=== PATIENT | male | born 1960 | race Caucasian/White ===

== ENCOUNTER → 2016-07-21 | Outpatient (CLI) | payer OTHER ==
[~2016-07-21] MED LIST: AFRIN NASAL SPR30 ML; APIDRA100 UNIT/1 SC; BASAGLAR SQ; BUSPAR 10MG10 MG PO; CARAFATE 1 GM TA1 GM PO; CARAFATE1 GM PO; COLACE 100MG C100 MG PO; CREON DR 36,001 EACH PO; CREON DR 6,0001 EACH PO; ELAVIL 25 MG TA25 MG PO; FLOMAX 0.4 MG0.4 MG PO; GLUCERNA237 ML PO; LEVAQUIN I750 MG/150 IV; LEVAQUIN750 MG IV; LIDODERM PATCH 51 EA TOP; METFORMIN HCL500 MG PO; METOPROLOL TART25 MG PO; NEURONTIN 300300 MG PO; NEURONTIN300 MG PO; OMEPRAZOLE20 M1 PO; OXYCODONE HCL10 MG PO; PROTONIX40 MG PO; REQUIP2 MG PO; THERAGRAN TAB1 EA PO; VITAMIN A10000 UNI1 PO; VITAMIN B-1100 MG PO; VITAMIN D50000 UNIT PO; ZENPEP DR 5,001 EACH PO
== END ==
LOC: KOH-I 10:08
DX: M25.532 Pain in left wrist (principal); M79.642 Pain in left hand; S52.92XA Unspecified fracture of left forearm, initial encounter for closed fracture
CPT/HCPCS: 73110; 73130

== ENCOUNTER 2017-01-18 21:17 | Inpatient (IN) | payer OTHER ==
[~2017-01-18] VITALS: Ht 180.3 cm; Wt 79.4 kg
[2017-01-18 22:50] LABS: HEMOGLOBIN 13.1 gm/dl (14.0-17.5); RED BLOOD COUNT 4.36 M/UL (4.20-5.50); WHITE BLOOD COUNT 12.7 K/UL (4.5-11.0)
[2017-01-20 06:10] LABS: RED BLOOD COUNT 3.77 M/UL (4.20-5.50); WHITE BLOOD COUNT 6.5 K/UL (4.5-11.0)
[2017-01-20 06:18] LABS: BUN/CREATININE RATIO 13 (0-10)
[2017-01-22 06:01] LABS: BUN/CREATININE RATIO 7 (0-10)
== END 2017-01-22 16:45 | disposition home or self-care (01) | DRG 439 ==
LOC: ER1 21:17 → ZEROF 01-19 01:09 → MED SURG 4 01-19 01:09
PROVIDERS: Internal Medicine Infectious Disease; Physician Assistant; ADMIT Internal Medicine
DX: K85.80 Other acute pancreatitis without necrosis or infection (principal); N17.9 Acute kidney failure, unspecified; E87.1 Hypo-osmolality and hyponatremia; K52.1 Toxic gastroenteritis and colitis; F10.10 Alcohol abuse, uncomplicated; E86.0 Dehydration; E87.6 Hypokalemia; E08.9 Diabetes mellitus due to underlying condition without complications; D69.59 Other secondary thrombocytopenia; T39.015A Adverse effect of aspirin, initial encounter; I95.89 Other hypotension; K86.81 Exocrine pancreatic insufficiency; K86.1 Other chronic pancreatitis; I10 Essential (primary) hypertension; F17.210 Nicotine dependence, cigarettes, uncomplicated; Z72.89 Other problems related to lifestyle; N40.0 Benign prostatic hyperplasia without lower urinary tract symptoms; K21.9 Gastro-esophageal reflux disease without esophagitis; Z90.49 Acquired absence of other specified parts of digestive tract; R77.8 Other specified abnormalities of plasma proteins; Z79.4 Long term (current) use of insulin; Z79.899 Other long term (current) drug therapy; Y92.230 Patient room in hospital as the place of occurrence of the external cause
CPT/HCPCS: 36415; 36600; 71010; 80048; 80053; 82009; 82150; 82550; 82553; 82803; 82962; 83036; 83605; 83690; 83874; 84132; 84484; 85025; 85027; 87040; 87045; 87046; 89055; 93005; 96374; 96375; 96376; 99285; C9113; J0696; J2270; J2405; J2550; J3411; J3475; J3480; J7030; J7050; Q9962

== ENCOUNTER 2017-02-17 11:37 | Emergency (ER) | payer OTHER | END 2017-02-17 14:45 | disposition home or self-care (01) | LOC: ER1 11:37 | DX: M25.462 Effusion, left knee (principal); M17.12 Unilateral primary osteoarthritis, left knee; E11.40 Type 2 diabetes mellitus with diabetic neuropathy, unspecified; I10 Essential (primary) hypertension; F17.200 Nicotine dependence, unspecified, uncomplicated | CPT/HCPCS: 29530; 73564; 99283 ==